=== PATIENT | male | born 2000 | race Caucasian/White ===

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

== ENCOUNTER 2020-06-23 18:20 | Emergency (ER) | payer OTHER ==
[~2020-06-23] VITALS: Ht 170.2 cm; Wt 72.6 kg
[~2020-06-23 18:20] MED LIST: BENADRYL25 MG PO; EPIPEN 2-P0.3 MG/0.3 IM; PREDNISONE50 MG PO
[2020-06-23 18:25] VITALS: BP 155/76
[2020-06-23] MEDS ORDERED: TRIAMCINOLONE A80 GM TOP (19:19)
[2020-06-23] MEDS ORDERED: [UNRECOGNIZED DRUG - OTHER] TOP (19:19)
== END 2020-06-23 19:30 | disposition home or self-care (01) ==
LOC: ER 18:20
DX: B07.9 Viral wart, unspecified (principal); L73.9 Follicular disorder, unspecified; Z91.013 Allergy to seafood

== ENCOUNTER 2020-11-08 08:11 | Emergency (ER) | payer OTHER ==
[~2020-11-08] VITALS: Ht 170.2 cm; Wt 81.7 kg
[~2020-11-08 08:11] MED LIST changes: +TRIAMCINOLONE A80 GM TOP; +[UNRECOGNIZED DRUG - OTHER] TOP
[2020-11-08 09:33] VITALS: BP 100/63
--- NOTE | 2020-11-08 10:21 | EKG ---
[address] [place] [place] [address] ELECTROCARDIOGRAM REPORT Name: DANKMAGDALENA Room #: [facility] Fernando#: [id number] Admission: 11/08/20 Attend Phys: Discharge: 11/08/20 Date of : [birth year] Report #: [id number] [facility] ED Test Date: 2020-11-08 Test Time: 08:18:25 Pat Name: MAGDALENA WEEMS Department: Room: Gender: M Manager Hi: JOHNIE : 2000 Requested By: Stef Causey Order Number: [id number] MD: Faustino Buitrago Measurements Intervals [place] Rate: 68 P: 47 OK: 155 QRS: 57 QRSD: 80 T: 25 QT: 400 QTc: 426 Interpretive Statements Sinus rhythm No previous ECG available for comparison Electronically Signed On 11-08-2020 10:21:18 RESEARCH INTERVIEWER by Faustino Buitrago [email or web address] <ELECTRONICALLY SIGNED> By: Faustino Buitrago MD 11/08/20 1021 0818 Faustino Buitrago MD /EPI
== END 2020-11-08 09:44 ==
LOC: ER 08:11
DX: R07.89 Other chest pain (principal); Z91.013 Allergy to seafood; Z79.899 Other long term (current) drug therapy